=== PATIENT | male | born 1965 | race Caucasian/White ===

== ENCOUNTER 2021-09-12 09:36 | Outpatient (CLI) | payer OTHER, SELFPAY ==
--- NOTE | 2021-09-12 09:56 | CT_ITS ---
WS: [id number] CT ABDOMEN AND PELVIS NONCONTRAST HISTORY: R10.31 - Right lower quadrant pain TECHNIQUE: Imaging performed through the abdomen and pelvis. Coronal and sagittal reformats are submi tted. All CT scans at [facility] use at least one of these dose optimization techniques: auto mated exposure control; mA and/or kV adjustment per patient size (includes targeted exams where dose is matched to clinical indication); or iterative reconstruction. DLP: 1049.83 mGy.cm COMPARISON: 08/15/2017 Lower thorax: Lung bases are clear. Visualized heart is normal. No hiatal hernia. Liver: Normal size liver. Benign granuloma. No mass or intrahepatic dilatation noted but this is a no ncontrast evaluation. Gallbladder: Normal gallbladder. Pancreas: Limited evaluation of the pancreatic head. The portal vein and SMV are inseparable from the pancreatic head. No IV contrast was submitted limiting differentiation. The remaining pancreas is ne gative. Spleen: Mildly enlarged at 13.4 cm. Adrenal glands: Normal. No mass. Right kidney: 2 small to characterize cortical hypodensity in the posterior kidney. No obstruction. Left kidney: Normal size kidney with no mass or hydronephrosis. Aorta: Mild atherosclerosis abdominal aorta with no aneurysm. No free fluid, intraperitoneal air or significant lymphadenopathy. GI tract: Normally distended stomach. No small bowel obstruction. Appendix is normal. No significant diverticular disease. No obstruction. Abdominal wall: Negative. No hernia. Pelvis: Mild diffuse thickening of the bladder wall. No focal thickening. No ascites or adenopathy. Osseous structures: Bilateral focal areas of osteonecrosis at the femoral heads, RIGHT greater than L EFT. No fragmentation. CT/CT abdomen pelvis wo con [id number] IMPRESSION: 1. No acute abdominal or pelvic abnormalities. 2. Normal appendix. 3. Evaluation is limited without IV contrast. 4. Minimal osteonecrosis involving the femoral heads bilaterally.
== END 2021-09-12 09:37 | disposition home or self-care (01) ==
PROVIDERS: PCP Family Medicine; Visit Provider Surgery
DX: R10.31 Right lower quadrant pain (principal)
CPT/HCPCS: 74176

== ENCOUNTER 2022-02-16 00:10 | Emergency (ER) | payer OTHER, SELFPAY ==
[2022-02-16 00:19] VITALS: BP 157/87; PULSE 77; RESP 18; TEMP 36.8; O2SAT 96; BMI 25.7
--- NOTE | 2022-02-16 00:23 | W.ED.ABDPA2 ---
HPI - Abdominal Pain General: Chief Complaint: Abdominal Pain Stated Complaint: ABD Pain Time Seen by Provider: 02/16/22 00:11 Source: patient Mode of arrival: ambulatory Limitations: no limitations History of Present Illness: 56-year-old male states he had a history of reflux he states been having epigastric abdominal pain with burning sensation in his throat over the last week. He states it gets much worse at night when he lays flat. He is not on any PPIs he states he has tried Chloraseptic spray with no improvement denies any chest pain denies any vomiting denies any diarrhea states while setting up his pain is minimal. Associated Symptoms: Denies chills, dysuria and fever(s) Review of Systems Const: Denies: fever(s), chills, body aches or change in appetite Eyes: Denies: blurry vision or eye discomfort ENMT: Denies: throat pain or dental pain Card: Denies: chest pain Resp: Denies: dyspnea GI: Reports: abdominal pain : Denies: dysuria Musc: Denies: neck pain or back pain Skin/Breast: Denies: rash Neuro: Denies: headache(s) Psych: Denies: depression Pedro/Lymph: Denies: easy bruising All/Imm: Denies: urticaria PFSH ED PFSH: Medical History Hypertension Surgical History History of hydrocelectomy 1995 Status post colonoscopy with polypectomy Family History Other CAD (coronary artery disease) Cancer Stroke Denies family history of Diabetes Dementia Chronic kidney disease (CKD) Social History Smoking and tobacco status: current every day smoker smokeless tobacco Alcohol intake: current Alcohol intake frequency: 3 or more drinks per day Lives independently: Yes Household members: spouse, children and other Marital status: Physical Exam Const: COMMON NORMALS: no acute distress, patient oriented x3 and healthy appearing HENMT: COMMON NORMALS: normocephalic and atraumatic HEAD & SCALP: normocephalic and atraumatic Eye: COMMON NORMALS: Equal, round and reactive pupils present and EOMs intact bilaterally PUPIL: Yes Equal, round and reactive pupils present Neck/C-Spine: COMMON NORMALS: full ROM and supple Chest: COMMONS NORMALS: normal inspection of the chest and normal palpation of entire chest wall Resp: COMMON NORMALS: normal respiratory effort, No retractions, No use of accessory muscles and clear to auscultation bilaterally AUSCULTATION: clear to auscultation bilaterally Cardio: COMMON NORMALS: regular rate, regular rhythm and No murmurs present (Cardio) RATE: regular rate RHYTHM: regular rhythm GI: COMMON NORMALS: Normal to inspection, nondistended, normoactive bowel sounds present, Soft to palpation, non-tender and no masses PALPATION: Yes Soft to palpation Extremity: COMMON NORMALS: normal to inspection and full ROM Neuro: COMMON NORMALS: patient oriented x3, moves all extremities and no focal motor deficits Psych: COMMON NORMALS: mental status grossly normal, Normal thought process present and cooperative THOUGHT PROCESS: Normal thought process present Skin: COMMON NORMALS: no rashes or lesions noted and no wounds GENERAL SKIN EXAM: no rashes or lesions noted Course Vital Signs: Vital signs: Vital Signs Temperature 98.3 F 02/16/22 00:19 Pulse Rate 77 02/16/22 00:19 Respiratory Rate 18 02/16/22 00:19 Blood Pressure 157/87 02/16/22 00:19 Pulse Oximetry 96 02/16/22 00:19 Oxygen Delivery Me thod 02/16/22 00:19 MDM - Abdominal Pain Medical Decision Making Patient presents here with abdominal pain consistent with reflux he feels improved here after GI cocktail his blood work is normal no signs of acute surgical abdomen we will start him on Protonix he is to follow-up with PCP and return if worsening. Lab Data : 02/16/22 00:33 02/16/22 00:33 Labs/Radiology: Laboratory Results WBC 6.3 10^3/uL (4.0-10.0) 02/16/22 00:33 RBC 5.11 10^6/uL (4.1-5.3) 02/16/22 00:33 Hgb 16.4 g/dL (11.7-16.6) 02/16/22 00:33 Hct 46.0 % (42.0-52.0) 02/16/22 00:33 MCV 90.0 fl (80-94) 02/16/22 00:33 MCH 32.1 pg (28.0-34.0) 02/16/22 00: MCHC 35.7 g/dL (30.0-36.0) 02/16/22 00: RDW 13.2 % (12.1-15.1) 02/16/22 00:33 Plt Count 192 10^3/cmm (130-400) 02/16/22 00: MPV 10.1 fL (7.4-10.4) 02/16/22 00:33 Neut % (Auto) 50.7 % 02/16/22 00: Lymph % (Auto) 25.6 % 02/16/22 00:33 Craven % (Auto) 14.7 % 02/16/22 00: Eos % (Auto) 8.1 % 02/16/22 00:33 Baso % (Auto) 0.6 % 02/16/22 00: Neut # (Auto) 3.21 10^3/uL (1.8-7.7) 02/16/22 00: Lymph # (Auto) 1.6 10^3/uL (0.8-4.8) 02/16/22 00:33 Craven # (Auto) 0.9 10^3/uL (0.2-0.9) 02/16/22 00: Eos # (Auto) 0.5 10^3/uL (0.0-0.8) 02/16/22 00: Baso # (Auto) 0.0 10^3/uL (0.0-0.1) 02/16/22 00: Nucleated RBC % (auto) 0 % 02/16/22 00: Nucleated RBCs # 0.0 /100WBC 02/16/22 00:33 Sodium 137 mmol/L (136-145) 02/16/22 00: Potassium 4.2 mmol/L (3.5-5.1) 02/16/22 00: Chloride 101 mmol/L (98-107) 02/16/22 00: Carbon Dioxide 26 mmol/L (22-29) 02/16/22 00:33 Anion Gap 14.2 (5-19) 02/16/22 00: BUN 17 mg/dL (6-20) 02/16/22 00:33 Creatinine 1.0 mg/dL (0.7-1.2) 02/16/22 00:33 GFR Calculation 77.9 mL/min (90-130) L 02/16/22 00:33 Glucose 96 mg/dL (65-115) 02/16/22 00:33 Calculated Osmolality 285 mOsm/kg (285-295) 02/16/22 00:33 Calcium 9.5 mg/dL (8.5-10.5) 02/16/22 00:33 Total Bilirubin 0.8 mg/dL (0.15-1.2) 02/16/22 00:33 AST 42 U/L (0-40) H 02/16/22 00:33 ALT 42 U/L (0-41) H 02/16/22 00:33 Alkaline Phosphatase 56 U/L (40-130) 02/16/22 00:33 Total Protein 7.5 g/dL (6.6-8.7) 02/16/22 00:33 Albumin 4.2 g/dL (3.5-5.2) 02/16/22 00:33 Globulin 3.3 g/dL (1.3-4.6) 02/16/22 00:33 Lipase 28 U/L (13-60) 02/16/22 00:33 Discharge Plan Discharge Patient Disposition: Home Clinical Impression: Abdominal pain, Acid reflux Condition: Stable Prescriptions: New Protonix 40 mg tablet,delayed release (DR/EC) 40 mg PO DAILY Qty: 60 0RF No Action metoprolol tartrate 25 mg tablet 25 mg PO DAILY lisinopril 20 mg tablet 20 mg PO DAILY Discharge Orders: Discharge ED (Routine); Ordered 02/16/22 Ordered By: Abiola Young Referrals: Ortiz Cartagena MD [Primary Care Provider] - 1-3 days Discharge Diet: Advance as tolerated Discharge Activity: Resume usual activity Patient Instructions: GERD (Gastroesophageal Reflux Disease) (ED), Abdominal Pain (ED) Coding Level of Care Code ED Service Control Operator for Chg Fwd Exam Comprehensive
[2022-02-16] MEDS: lidocaine 2% viscous 15 ML, aluminum-mag hydrox-simethicon 30 ML, sucralfate oral liq 1 GM PO (00:30)
[2022-02-16 00:38] LABS: Basophils % 0.6 %; Eosinophils # 0.5 10^3/uL (0.0-0.8); Eosinophils % 8.1 %; Hemoglobin 16.4 g/dL (11.7-16.6); Lymphocytes # 1.6 10^3/uL (0.8-4.8); Lymphocytes % 25.6 %; Mean Corpuscular HGB Conc 35.7 g/dL (30.0-36.0); Mean Corpuscular Hemoglobin 32.1 pg (28.0-34.0); Mean Platelet Volume 10.1 fL (7.4-10.4); Monocytes # 0.9 10^3/uL (0.2-0.9); Monocytes % 14.7 %; Neutrophils # 3.21 10^3/uL (1.8-7.7); Neutrophils % 50.7 %; Nucleated Red Blood Cells % 0 %; Platelet Count 192 10^3/cmm (130-400); Red Blood Count 5.11 10^6/uL (4.1-5.3); Red Cell Distribution Width 13.2 % (12.1-15.1); White Blood Count 6.3 10^3/uL (4.0-10.0)
[2022-02-16 00:52] LABS: Alanine Aminotransferase 42 U/L (0-41); Albumin Level 4.2 g/dL (3.5-5.2); Alkaline Phosphatase 56 U/L (40-130); Anion Gap 14.2 (5-19); Aspartate Amino Transferase 42 U/L (0-40); Blood Urea Nitrogen 17 mg/dL (6-20); Calcium 9.5 mg/dL (8.5-10.5); Carbon Dioxide 26 mmol/L (22-29); Chloride 101 mmol/L (98-107); Globulin 3.3 g/dL (1.3-4.6); Glomerular Filtration Rate 77.9 mL/min (90-130); Glucose 96 mg/dL (65-115); Lipase 28 U/L (13-60); Osmolality Calculated 285 mOsm/kg (285-295); Potassium 4.2 mmol/L (3.5-5.1); Sodium 137 mmol/L (136-145); Total Bilirubin 0.8 mg/dL (0.15-1.2); Total Protein 7.5 g/dL (6.6-8.7)
[2022-02-16] MEDS: pantoprazole DR 40 mg Tablet PO (01:03)
== END 2022-02-16 01:09 | disposition home or self-care (01) ==
PROVIDERS: Emergency Provider Emergency Medicine; PCP Family Medicine
DX: R10.9 Unspecified abdominal pain (principal); K21.9 Gastro-esophageal reflux disease without esophagitis; I10 Essential (primary) hypertension; F17.210 Nicotine dependence, cigarettes, uncomplicated
CPT/HCPCS: 80053; 83690; 85025; 99283